=== PATIENT | male | born 1970 | race Caucasian/White ===

== ENCOUNTER 2019-07-12 01:09 | Emergency (ER) | payer OTHER ==
[~2019-07-12] VITALS: Ht 167.6 cm; Wt 109.3 kg
[2019-07-12 01:20] VITALS: BP 139/77
--- NOTE | 2019-07-12 01:24 | NUR ---
PT AMBULATED TO BED #2
--- NOTE | 2019-07-12 01:31 | NUR ---
48 Y/O MALE C/O COUGH, SORE THROAT, AND SOB X 2 WEEKS. PT STATES COUGH IS WORSE AT NIGHT WHEN HE TRIES TO SLEEP, WAKES UP TRYING TO CATCH HIS BREATH. PT STATES HE WAS SEEN AT URGENT [facility]ARE ON THURSDAY AND PRESCRIBED PREDNISONE AND AZITHROMYCIN FOR COUGH, STATES HE HAS BEEN TAKING MEDICATIONS W/ NO RELIEF OF SYMPTOMS. RR EVEN AND UNLABORED, NO ACCESSORY MUSCLE USE. LUNG SOUNDS CLEAR THROUGHOUT. PT SITTING IN BED, X 1 SIDE RAIL RAISED. AT BEDSIDE. VSS. MEDHX: DENIES ALLERGIES: YVROSE
--- NOTE | 2019-07-12 01:48 | NUR ---
DR HUDSON AT BEDSIDE EXAMINING PT.
[2019-07-12] MEDS ORDERED: PANTOPRAZOLE 40 MG TABEC PO ONE (02:10)
--- NOTE | 2019-07-12 02:16 | NUR ---
PT SITTING UPRIGHT IN BED, DENIES SOB/COUGH. PT CALM AND PLEASANT. VSS. WILL CONTINUE TO MONITOR
[2019-07-12 02:28] VITALS: BP 139/77
--- NOTE | 2019-07-12 02:29 | NUR ---
Patient discharged with v/s stable. Written and verbal after care instructions given and explained. Patient alert, oriented and verbalized understanding of instructions. Ambulatory with steady gait. All questions addressed prior to discharge. ID band removed. Patient advised to follow up with PMD. Rx of PROTONIX given. Patient educated on indication of medication including possible reaction and side effects. Opportunity to ask questions provided and answered.
== END 2019-07-12 02:29 | disposition home or self-care (01) ==
LOC: MED 01:09
DX: K21.9 Gastro-esophageal reflux disease without esophagitis (principal)
CPT/HCPCS: 99283

== ENCOUNTER 2020-01-17 19:16 | Emergency (ER) | payer OTHER ==
[~2020-01-17] VITALS: Ht 172.7 cm; Wt 91.2 kg
[2020-01-17 19:25] VITALS: BP 128/80
--- NOTE | 2020-01-17 19:27 | NUR ---
PT AMBULATED TO BED 04 WITH STEADY GAIT.
--- NOTE | 2020-01-17 19:45 | NUR ---
49 Y/O MALE PRESENTS TO ER WITH C/O MIDLINE LEFT CALF NODULE X 3 DAYS. 4/10 PAIN. PT STATES HE HAD GALL STONE REMOVAL X 4 DAYS AGO, THEN NOTICED PEA-SIZED NODULE IN THE MIDDLE OF THE CALF. CALF IS NOT RED, OR SWOLLEN, NOT TTP, NO WARMTH NOTED DORSALIS PEDIS, AND POSTERIOR TIBIALIS ARE PALPABLE, CAP REFILL <3 SEC. DENIES NAUSEA, VOMITING, DIARRHEA, SOB, COUGH. VSS, R/R EQUAL, AND UNLABORED. SIDE RAIL X1, BED IN LOW POSITION, WILL CONTINUE TO MONITOR. NKDA PMH: GALL STONES; ACID REFLUX
[2020-01-17 20:54] LABS: BASOPHILS # (AUTO) 0.1 K/uL (0.00-0.22); BASOPHILS % (AUTO) 0.8 % (0.0-2.0); EOSINOPHILS # (AUTO) 0.1 K/uL (0-0.4); EOSINOPHILS % (AUTO) 1.9 % (0.0-4.0); HEMOGLOBIN 15.6 g/dL (12.0-18.0); LYMPHOCYTES # (AUTO) 2.7 K/uL (2.0-11.5); LYMPHOCYTES % (AUTO) 37.4 % (20.5-51.1); MEAN CORPUSCULAR HEMOGLOBIN 31 pg (27-31); MEAN CORPUSCULAR HGB CONC 34 g/dL (33-37); MEAN CORPUSCULAR VOLUME 92.4 fL (80-94); MONOCYTES # (AUTO) 0.4 K/uL (0.8-1.0); MONOCYTES % (AUTO) 5.6 % (1.7-9.3); NEUTROPHILS # (AUTO) 3.9 K/uL (1.8-7.7); NEUTROPHILS % (AUTO) 54.3 % (42.2-75.2); PLATELET COUNT (AUTO) 200 K/uL (140-450); RED BLOOD CELL COUNT(AUTO) 4.98 MIL/uL (4.20-6.10); RED CELL DISTRIBUTION WIDTH 12.8 % (11.6-13.7); WHITE BLOOD COUNT (AUTO) 7.1 K/uL (4.8-10.8)
[2020-01-17 21:05] LABS: ALBUMIN 3.6 g/dL (3.4-5.0); ANION GAP 10.7 (8-16); CARBON DIOXIDE 30.4 mmol/L (21-32); CREATININE 1.1 mg/dL (0.6-1.3); POTASSIUM 4.1 mmol/L (3.5-5.1); PROTHROMBIN TIME 11.5 secs (10.8-13.4); TOTAL BILIRUBIN 0.5 mg/dL (0.0-1.0)
--- NOTE | 2020-01-17 22:45 | NUR ---
Patient discharged with v/s stable. Written and verbal after care instructions given and explained. Patient verbalized understanding. Ambulatory with steady gait. All questions addressed prior to discharge. Advised to follow up with PMD. Prescription of motrin was given. Pt no other complains noted and d/c.
[2020-01-17 22:48] VITALS: BP 125/83
== END 2020-01-17 22:45 | disposition home or self-care (01) ==
LOC: MED 19:16
DX: R25.2 Cramp and spasm (principal); K21.9 Gastro-esophageal reflux disease without esophagitis; Z98.890 Other specified postprocedural states
CPT/HCPCS: 36415; 80053; 85025; 85379; 85610; 85730; 93971; 99284; Q0092